=== PATIENT | male | born 1965 | race Caucasian/White ===

== ENCOUNTER → 2017-07-18 | Outpatient (CLI) | payer OTHER ==
[~2017-07-18] MED LIST: BETAPACE 80MG80 MG PO; FLEXERIL 1010 MG/TAB PO; MEDROL 4MG DOSPA4 MG PO; TIKOSYN0.5 MG PO; ULTRAM 50MG TAB50 MG PO; XARELTO20 MG PO
== END ==
LOC: MHCPAIN 07:54
DX: G89.29 Other chronic pain (principal); M47.27 Other spondylosis with radiculopathy, lumbosacral region; M53.3 Sacrococcygeal disorders, not elsewhere classified
CPT/HCPCS: G0463

== ENCOUNTER → 2017-08-11 | Outpatient (CLI) | payer OTHER | LOC: MHCPAIN 13:09 | DX: M47.27 Other spondylosis with radiculopathy, lumbosacral region (principal); M46.96 Unspecified inflammatory spondylopathy, lumbar region | CPT/HCPCS: J1100; Q9967 ==

== ENCOUNTER → 2019-03-02 | Outpatient (CLI) | payer OTHER | LOC: COL.RAD 02-23 08:15 | DX: M51.17 Intervertebral disc disorders with radiculopathy, lumbosacral region (principal); M48.07 Spinal stenosis, lumbosacral region ==

== ENCOUNTER → 2020-03-28 | Outpatient (CLI) | payer OTHER, BC | LOC: COL.RAD 13:36 | DX: M51.26 Other intervertebral disc displacement, lumbar region (principal); M47.816 Spondylosis without myelopathy or radiculopathy, lumbar region ==